=== PATIENT | female | born 1990 | race Two or more races ===

== ENCOUNTER 2021-11-01 02:38 | Emergency (ER) | payer BC ==
[~2021-11-01] VITALS: Ht 162.6 cm; Wt 82.0 kg
[2021-11-01 09:37] LABS: CLARITY URINE CLOUDY (CLEAR); COLOR URINE YELLOW (YELLOW); KETONES URINE 1+ (NEGATIVE); LEUKOCYTE ESTERASE URINE 1+ (NEGATIVE); NITRITE URINE NEGATIVE (NEGATIVE); OCCULT BLOOD URINE NEGATIVE (NEGATIVE); PH URINE 5.5 (4.5-8.0); PROTEIN URINE NEGATIVE (NEGATIVE); SPECIFIC GRAVITY URINE 1.016 (1.005-1.030)
[2021-11-01 09:51] LABS: *AMPHETAMINES SCREEN URINE NEGATIVE (NEGATIVE); *BARBITURATES SCREEN URINE NEGATIVE (NEGATIVE); *BENZODIAZEPINES SCREEN URINE NEGATIVE (NEGATIVE); *COCAINE SCREEN URINE NEGATIVE (NEGATIVE); METHADONE URINE SCREEN NEGATIVE (NEGATIVE); OPIATES URINE SCREEN NEGATIVE (NEGATIVE); PHENCYCLIDINE URINE SCREEN NEGATIVE (NEGATIVE)
[2021-11-01 10:01] LABS: CANNABINOID URINE SCREEN PRESUMTIVE POSITIVE (NEGATIVE)
[2021-11-01 10:49] LABS: BASOPHILS % 0.3 % (0.0-2.0); EOSINOPHILS % 0.1 % (0.0-5.0); HEMOGLOBIN. 13.6 g/dL (12.0-16.0); LYMPHOCYTES % 17.8 % (20.0-50.0); MEAN CORPUSCULAR HEMOGLOBIN 31.3 pg (28.0-32.0); MEAN CORPUSCULAR VOLUME 92.4 fL (81.0-99.0); MEAN PLATELET VOLUME 8.6 fl (7.4-10.4); MONOCYTES % 7.8 % (2.0-8.0); PLATELET 255 x1000/uL (130-400); RED BLOOD CELL COUNT 4.33 mill/uL (4.2-5.4); RED CELL DISTRIBUTION WIDTH 12.8 % (11.6-14.6)
[2021-11-01 10:57] LABS: CHLORIDE 109 mEq/L (98-107)
[2021-11-01 11:03] LABS: HCG SCREEN NEGATIVE
[2021-11-01 11:06] LABS: ETHANOL BLOOD < 10 mg/dL
[2021-11-01] MEDS: CEPHALEXIN 250MG CAPSULE PO SCH ×3 (13:59→21:11)
[2021-11-01] MEDS ORDERED: LORAZEPAM 0.5MG TABLET PO ONE (14:00)
[2021-11-01] MEDS ORDERED: LORAZEPAM 1MG TABLET PO ONE (22:15)
[2021-11-02] MEDS: CEPHALEXIN 250MG CAPSULE PO SCH ×3 (09:12→15:15)
[2021-11-02 16:30] VITALS: BP 102/65
[2021-11-02] MEDS ORDERED: BUSPIRONE HCL 5MG TABLET PO SCH (21:00)
== END 2021-11-02 17:23 | disposition home or self-care (01) ==
LOC: ER 02:38
DX: F23 Brief psychotic disorder (principal)
CPT/HCPCS: 36415; 80053; 80305; 80307; 80320; 80329; 81003; 84703; 85025; 99285; G0480